=== PATIENT | female | born 1965 | race Caucasian/White ===

== ENCOUNTER 2024-10-11 16:45 | Emergency (ER) | payer OTHER ==
[~2024-10-11] VITALS: Ht 160 cm; Wt 86.6 kg
[2024-10-11 17:39] LABS: BASOPHILS % (AUTO) 0.7 % (0.0-2.0); EOSINOPHILS # (AUTO) 0.1 K/uL (0.0-0.7); EOSINOPHILS % (AUTO) 1.3 % (0.0-7.0); HEMATOCRIT 37.9 % (31.2-41.9); HEMOGLOBIN 13.1 g/dL (10.9-14.3); LYMPHOCYTES # (AUTO) 1.2 K/uL (0.8-4.8); LYMPHOCYTES % (AUTO) 25.3 % (20.5-51.5); MEAN CORPUSCULAR HEMOGLOBIN 31.5 uug (24.7-32.8); MEAN CORPUSCULAR HGB CONC 34 g/dL (32.3-35.6); MEAN CORPUSCULAR VOLUME 91.4 fL (75.5-95.3); MONOCYTES # (AUTO) 0.4 K/uL (0.1-1.30); MONOCYTES % (AUTO) 8.5 % (0.0-11.0); NEUTROPHILS # (AUTO) 3.1 K/uL (1.8-8.9); NEUTROPHILS % (AUTO) 64.2 % (38.5-71.5); PLATELET COUNT (AUTO) 257 K/uL (179-408); RED BLOOD CELL COUNT(AUTO) 4.15 MIL/uL (3.63-4.92); RED CELL DISTRIBUTION WIDTH 13.1 % (12.3-17.7); WHITE BLOOD COUNT (AUTO) 4.9 K/uL (3.8-11.8)
[2024-10-11 17:46] LABS: CALCIUM 8.9 mg/dL (8.5-10.1); CARBON DIOXIDE 26 mmol/L (21-32); CHLORIDE 107 mmol/L (98-107); CREATININE 0.7 mg/dL (0.6-1.3); GLUCOSE 94 mg/dL (74-106); POTASSIUM 4.1 mmol/L (3.5-5.1); SODIUM SERUM 145 mmol/L (136-145); UREA NITROGEN, BLOOD 10 mg/dL (7-18)
[2024-10-11 17:47] LABS: DIFFERENTIAL COMMENT 1
[2024-10-11 18:00] VITALS: O2SAT 97
[2024-10-11] MEDS ORDERED: ACETAMINOPHEN 500 MG TABLET ONE (18:14)
[2024-10-11] MEDS: ACETAMINOPHEN 500 MG TABLET PO ONE (18:17)
[2024-10-11] MEDS ORDERED: ROSUVASTATIN PO (18:29)
== END 2024-10-11 18:12 | disposition home or self-care (01) ==
LOC: ER 16:45
DX: R07.9 Chest pain, unspecified (principal); E78.00 Pure hypercholesterolemia, unspecified; Z87.59 Personal history of other complications of pregnancy, childbirth and the puerperium
CPT/HCPCS: 36415; 71045; 84484; 85025; A4606; A4663; A9150